=== PATIENT | female | born 1935 | race Caucasian/White ===

== ENCOUNTER 2018-01-24 11:30 | Inpatient (IN) | payer MEDICAID, MEDICARE ==
[2018-01-24] MEDS ORDERED: ZOFRAN IV ONE (12:17)
[2018-01-24] MEDS ORDERED: MORPHINE IV ONE (12:18)
[2018-01-24] MEDS ORDERED: ANTIVERT PO ONE (12:20)
--- NOTE | 2018-01-24 12:26 | Emergency Department Report ---
HPI - General Chief Complaint: Fall Time Seen by Provider: 01/24/18 12:05 - HPI HPI: Room 4 The patient is an 82-year-old female presenting with a chief complaint of dizziness and fall. The patient states at approximately 10:30 she felt dizzy and fell to the ground. The patient states she did not lose consciousness. After the fall the patient complained of pain in both shoulders her right hand and left knee and the right side of her neck. Patient denies chest pain or shortness of breath. Patient gives her pain a score of 10/10 Location: [See above] Duration: [See above] Quality: Pain Severity: 10/10 Modifying factors: [see above] Context: [see above] Mode of transportation: [not driving] ED Past Medical Hx - Past Medical History Previous Medical History?: Yes Hx Hypertension: Yes Hx Asthma: Yes Additional medical history: abd pain, headache - Surgical History Past Surgical History?: Yes Additional Surgical History: rectal polyps - Family History Family history: no significant - Social History Smoking Status: Never Smoker Substance Use Type: None - Medications Home Medications: Home Medications Medication Instructions Recorded Confirmed Last Taken Type Aspirin EC [Aspirin Enteric Coated 81 mg PO QDAY 02/01/17 01/24/18 Unknown History TAB] Omeprazole Magnesium [PriLOSEC Otc] 20 mg PO QDAY 02/01/17 01/24/18 Unknown History Albuterol Sulfate [Ventolin Hfa] 2 puff IH Q4H PRN 01/24/18 01/24/18 Unknown History Alendronate Sodium [Fosamax] 70 mg PO QWEEK 01/24/18 01/24/18 Unknown History Bisacodyl [Dulcolax] 5 mg PO DAILY PRN 01/24/18 01/24/18 Unknown History Diclofenac Sodium [Voltaren] 2 gm TP QID 01/24/18 01/24/18 Unknown History Pentoxifylline [TRENtal] 400 mg PO QDAY 01/24/18 01/24/18 Unknown History Simvastatin [Zocor] 20 mg PO QPM 01/24/18 01/24/18 Unknown History ED Review of Systems ROS: Stated complaint: FALL Other details as noted in HPI Constitutional: no symptoms reported Eyes: denies: eye pain ENT: denies: throat pain Respiratory: denies: shortness of breath Cardiovascular: denies: chest pain Gastrointestinal: denies: abdominal pain Genitourinary: denies: dysuria Musculoskeletal: arthralgia, myalgia. denies: back pain Neurological: vertigo. denies: headache Physical Exam - Physical Exam Vital Signs: Vital Signs 01/24/18 11:57 Temperature 97.9 F Pulse Rate 65 Respiratory 18 Rate Blood Pressure 213/71 O2 Sat by Pulse 96 Oximetry Physical Exam: GENERAL: The patient is well-developed well-nourished female lying on stretcher not appearing to be in acute distress. Collar in place HEENT: Normocephalic. Atraumatic. Extraocular motions are intact. Patient has moist mucous membranes. NECK: Supple. Trachea midline. Patient plans pain in the right lateral aspect CHEST/LUNGS: Clear to auscultation. There is no respiratory distress noted. HEART/CARDIOVASCULAR: Regular. There is no tachycardia. There is no gallop rub or murmur. ABDOMEN: Abdomen is soft, nontender. Patient has normal bowel sounds. There is no abdominal distention. SKIN: There is no rash. There is no edema. There is no diaphoresis. NEURO: The patient is awake, alert, and oriented. The patient is cooperative. The patient has no focal neurologic deficits. The patient has normal speech. Cranial nerves II through XII grossly intact, no drift MUSCULOSKELETAL: There is tenderness to palpation of the dorsum of the right hand, right forearm and bilateral shoulders and left knee. There are no deformities seen.. There is no evidence of acute injury. ED Course Vital Signs 01/24/18 11:57 Temperature 97.9 F Pulse Rate 65 Respiratory 18 Rate Blood Pressure 213/71 O2 Sat by Pulse 96 Oximetry - Orthopedic Joint Reduction Joint #1 Consent Obtained: verbal consent, written consent Side: right Joint Reduction Location: shoulder Analgesia: moderate sedation Shoulder Technique Used (if applicable): traction/counter-traction, other ( modified Gene) Technique Used: traction/counter-traction Post-Reduction Neuro Exam: intact Post-Reduction Vascular Exam: intact Post Reduction X-Ray Obtained: Yes Post Reduction X-Ray Results: reduced Splint Applied: Yes Patient Tolerated Procedure: well ED Medical Decision Making - Lab Data Result diagrams: 01/24/18 13:59 01/24/18 13:59 - EKG Data -: EKG Interpreted by Ct EKG shows normal: sinus rhythm Rate: normal - EKG Data When compared to previous EKG there are: no significant change Interpretation: unchanged when compared t (02/01/2017) - Radiology Data Radiology results: pending (CT angiogram chest (Dr. Rodriguez made aware of pending CT angiogram)), report reviewed (CT head, CT cervical spine), image reviewed ( CT head, CT cervical spine) interpreted by me: Bilateral shoulder [id number] shoulder dislocation. Left Shoulder anatomic. No evidence of fracture Right hand x-ray-no acute fracture Left knee x-ray- no acute fracture Right forearm x-ray- questionable radial head fracture [facility] [address] [id number] Cat Scan Report Signed Patient: ROJELIO GARCÍA MR#: [id number] : 1935 Acct:[id number] Age/Sex: 82 / F ADM Date: 01/24/18 Loc: ED Attending Dr: Ordering Physician: YOSEF GRIMALDO MD Date of Service: 01/24/18 Procedure(s): CT head/brain wo con Accession Number(s): [id number] cc: YOSEF GRIMALDO MD CT HEAD WITHOUT CONTRAST INDICATION: Dizziness. COMPARISON: 02/01/[address] FINDINGS: Noncontrast head CT again demonstrates symmetric, age-appropriate ventricles and sulci. Slight periventricular hypodensities. Minimal, benign bilateral basal ganglia calcifications. No definite acute infarct, hemorrhage, mass effect or midline shift. No abnormal extra axial fluid collections. Stable posterior fossa with preserved basilar cisterns and appearance of the vertebral arteries, including calcifications. Bilateral ICA atherosclerotic calcifications also noted. Bilateral cataract surgery. Slight rightward nasal septal bowing. Clear anterior paranasal sinuses and right mastoid air cells. Left mastoid tip air cell opacification noted as on axial image 8. Intact calvarium. Normal scalp. Edentulous jaw. CONCLUSION: No acute intracranial CT abnormality with slight left mastoiditis and few other incidental findings, as above. Thank you for the opportunity to participate in this patient's care. Transcribed By: RS Dictated By: OBIE AMADOR MD Electronically Authenticated By: OBIE AMADOR MD Signed Date/Time: 01/24/18 1405 DD/ 1359 TD/TT: 01/24/[address] cervical spine (read by radiologist)-no acute fracture - Differential Diagnosis vertigo, ICH, dysrhythmia, cervical strain, cervical fracture, Critical care attestation.: If time is entered above; I have spent that time in minutes in the direct care of this critically ill patient, excluding procedure time. ED Disposition Clinical Impression: Dislocation of right shoulder joint, Near syncope, Fracture of radial head, right, closed Disposition: 09 OP ADMIT IP TO THIS HOSP Is pt being admited?: Yes Does the pt Need Aspirin: Yes Condition: Stable Referrals: PRIMARY CARE,MD [Primary Care Provider] - 3-5 Days Time of Disposition: 16:21 (hospitalist notified (Dr Rodriguez))
--- NOTE | 2018-01-24 14:06 | XRay Report ---
RIGHT FOREARM RADIOGRAPHS INDICATION: Pain, fall. COMPARISON: None similar. FINDINGS: Attempted AP and lateral views demonstrate intact right forearm bony articulation. Questionable subtle radial head lucency. Mild soft tissue heterogeneity/swelling about the elbow also not excluded. Lateral epicondyle degenerative spurring seen. Bony demineralization and osteoarthritic changes as at the first carpometacarpal joint incidentally noted. CONCLUSION: Right elbow post traumatic changes as swelling and questionable nondisplaced radial head fracture not entirely excluded, as described. Please correlate clinically and with dedicated right elbow radiographs, if warranted. Thank you for the opportunity to participate in this patient's care.
[2018-01-24 14:12] LABS: Basophils % (Auto) 0.4 % (0.0-1.8); Eosinophils # (Auto) 0.1 K/mm3 (0.0-0.4); Eosinophils % (Auto) 0.8 % (0.0-4.3); Hematocrit 38.2 % (30.3-42.9); Hemoglobin 12.6 gm/dl (10.1-14.3); Lymphocytes # (Auto) 2.7 K/mm3 (1.2-5.4); Lymphocytes % (Auto) 32.5 % (13.4-35.0); Mean Corpuscular HGB Conc 33 % (30-34); Mean Corpuscular Hemoglobin 31 pg (28-32); Mean Corpuscular Volume 94 fl (79-97); Monocytes # (Auto) 0.7 K/mm3 (0.0-0.8); Monocytes % (Auto) 8.6 % (0.0-7.3); Platelet Count 154 K/mm3 (140-440); Red Blood Count 4.04 M/mm3 (3.65-5.03)
--- NOTE | 2018-01-24 14:12 | Cat Scan Report ---
CT HEAD WITHOUT CONTRAST INDICATION: Dizziness. COMPARISON: 02/01/[address] FINDINGS: Noncontrast head CT again demonstrates symmetric, age-appropriate ventricles and sulci. Slight periventricular hypodensities. Minimal, benign bilateral basal ganglia calcifications. No definite acute infarct, hemorrhage, mass effect or midline shift. No abnormal extra axial fluid collections. Stable posterior fossa with preserved basilar cisterns and appearance of the vertebral arteries, including calcifications. Bilateral ICA atherosclerotic calcifications also noted. Bilateral cataract surgery. Slight rightward nasal septal bowing. Clear anterior paranasal sinuses and right mastoid air cells. Left mastoid tip air cell opacification noted as on axial image 8. Intact calvarium. Normal scalp. Edentulous jaw. CONCLUSION: No acute intracranial CT abnormality with slight left mastoiditis and few other incidental findings, as above. Thank you for the opportunity to participate in this patient's care.
--- NOTE | 2018-01-24 14:25 | Cat Scan Report ---
CT CERVICAL SPINE WITHOUT CONTRAST INDICATION: Pain after fall. COMPARISON: None similar. FINDINGS: Noncontrast axial, sagittal and coronal CT reconstructions of the cervical spine demonstrate normal visualized intracranial appearance. Assessment of the spinal canal from C4 inferiorly compromised due to artifact from shoulder soft tissues. Atherosclerotic calcifications. Mild opacification of a left mastoid tip air cell, axial image 24, series 3. Symmetric occipital condyles. Normal anterior and posterior arches of C1. Intact craniocervical articulation with normal predental space, prevertebral soft tissues, vertebral body stature and posterior elements. Fairly preserved disc heights except for slight C5-C6 narrowing possible. Straightening noted, possibly positional versus spasm. Approximately 1 mm anterolisthesis of C4 over C5 also not excluded. No large disc protrusion at any level suspected. Demineralized bones. Normal included thyroid. Clear visualized lung apices. On the obtained axial images: C2-C3 demonstrates mild to moderate bilateral facet arthropathy. Mild right uncovertebral spurring may result in right neural foraminal narrowing, axial image 58, series 3. C3-C4 demonstrates mild right and moderate to severe left facet arthropathy that in combination with left uncovertebral spurring results in left foraminal narrowing as on axial images 66-69. C4-C5 demonstrates moderate right and mild left facet arthropathy. C5-C6 demonstrates mild right and moderate left facet arthropathy. C6-C7 suggests mild facet arthropathy, left more than right. C7-T1 demonstrates mild bilateral facet arthropathy. An approximately 0.8 cm bone island in left pedicle of C7 incidentally seen, axial image 106. CONCLUSION: Cervical spine straightening and multilevel degenerative changes noted without acute fracture, as above. Please correlate. Thank you for the opportunity to participate in this patient's care.
--- NOTE | 2018-01-24 14:29 | XRay Report ---
LEFT KNEE RADIOGRAPHS INDICATION: Pain after fall. COMPARISON: None similar. FINDINGS: AP, oblique and crosstable lateral views of the left knee suggest at least moderate medial compartment narrowing, though overall articulation intact. Degenerative spurring also predominantly involves the medial compartment as also superior and inferior patellar poles. Superior patellar enthesophyte also noted. Small suprapatellar effusion. Atherosclerotic vascular calcifications. Bony demineralization. CONCLUSION: No acute left knee radiographic abnormality with moderate osteoarthritic changes and a suprapatellar effusion noted, as described. Please correlate. Thank you for the opportunity to participate in this patient's care.
--- NOTE | 2018-01-24 14:32 | XRay Report ---
RIGHT HAND RADIOGRAPHS INDICATION: Pain after fall. COMPARISON: None similar. FINDINGS: AP, lateral and oblique right hand radiographs demonstrate bony demineralization with intact articulation. No suspicious erosions, though degenerative changes most pronounced at the first carpometacarpal joint with sclerosis and spurring. Grossly unremarkable soft tissues. CONCLUSION: No acute right hand radiographic abnormality with degenerative changes noted, as described. Please correlate. Thank you for the opportunity to participate in this patient's care.
[2018-01-24 14:34] LABS: BUN/Creatinine Ratio 33; Blood Urea Nitrogen 23 mg/dL (7-17); Calcium 9.1 mg/dL (8.4-10.2); Hemolysis Index 43
--- NOTE | 2018-01-24 14:39 | XRay Report ---
BILATERAL SHOULDERS, 3 VIEWS History: Pain after fall. Findings: An anterior, inferior dislocation is identified at the left glenohumeral joint. There is normal articulation at the right shoulder. Mild osteopenia and mild osteoarthritis are noted. Impression: Anterior, inferior dislocation at the left shoulder.
[2018-01-24] MEDS ORDERED: ASPIRIN PO ONE (15:05)
[2018-01-24] MEDS ORDERED: AMIDATE IV ONE ×3 (15:08→15:10)
--- NOTE | 2018-01-24 16:02 | XRay Report ---
FINAL REPORT PROCEDURE: XR SHOULDER 1V RT TECHNIQUE: Right shoulder radiograph, single frontal view. HISTORY: post reduction COMPARISON: No prior studies are available for comparison. FINDINGS: Mild osteoarthritic change seen at the AC joint. There appears to be cystic degenerative change superior lateral aspect humeral head. Humeral head is high-riding. I cannot exclude injury to the rotator cuff, chronic or acute. No fracture or dislocation is seen today. Moderate facet arthritis incidentally noted in the cervical spine. IMPRESSION: No evidence of fracture or dislocation. Degenerative changes AC joint. Nonspecific cystic degenerative change superior lateral aspect humeral head. High-riding humeral head as described. I cannot exclude injury to the rotator cuff.
--- NOTE | 2018-01-24 18:09 | Cat Scan Report ---
FINAL REPORT PROCEDURE: CT ANGIO CHEST TECHNIQUE: Computerized tomographic angiography of the chest was performed during the IV injection of iodinated nonionic contrast including image processing. The image data was postprocessed using 2-dimensional multiplanar reformatted (MPR) and 3-dimensional (MIP and/or volume rendered) techniques. HISTORY: dizziness, fall, elevated d-dimer COMPARISON: No prior studies are available for comparison. FINDINGS: Pulmonary outflow tract, right and left main pulmonary arteries and their proximal branches: Clear, no filling defects seen to suggest pulmonary embolus. Pericardium: No evidence of pericardial effusion. Thoracic aorta: Atherosclerotic changes are visualized, no evidence of aneurysmal dilatation or dissection. Coronary arteries: Are partially calcified indicating atherosclerotic disease. Mediastinum and hilar regions: Nonspecific subcentimeter lymph nodes are visualized. No pathologically enlarged lymph nodes or masses are identified. Lung Ortega: Small amount of dependent atelectasis present. No focal infiltrates masses effusions or pneumothorax are visualized. Upper abdomen: Gallbladder is surgically absent. Low-density nodule seen left adrenal gland measuring 15 millimeters x 13 millimeters. This only has a density of 8 Hounsfield units likely representing an adrenal adenoma. Other: Compression deformities of T9, T10, T11, T12 and L1 are visualized. I do not see discrete fracture lines. These findings may be chronic. Correlation with physical exam recommended. No paraspinal hematomas are visualized. IMPRESSION: No evidence of pulmonary embolus. Atherosclerosis coronary arteries. Prior cholecystectomy. Low-density nodule left adrenal gland likely representing small adrenal adenoma. This could be confirmed with MRI or dynamic contrast-enhanced CT scan of the adrenal glands if clinically indicated. Compression deformities T9 through L1 may be old. I do not see discrete fracture lines. Correlation with physical exam is recommended.
[2018-01-25] MEDS ORDERED: MORPHINE IV ONE (00:20)
--- NOTE | 2018-01-25 00:49 | Event Note ---
Date: 01/24/18 See dictated H/p in reports
[2018-01-25] MEDS ORDERED: PROAIR IH PRN (00:54)
[2018-01-25] MEDS ORDERED: SODIUM CHLORIDE FLUSH SYRINGE 10 ML IV PRN (00:56)
[2018-01-25] MEDS ORDERED: ZOFRAN IV PRN (00:56)
[2018-01-25] MEDS ORDERED: PERCOCET 5/325 PO PRN (00:56)
[2018-01-25] MEDS ORDERED: TYLENOL PO PRN (00:56)
[2018-01-25] MEDS ORDERED: PROVENTIL IH PRN (01:03)
--- NOTE | 2018-01-25 01:43 | History and Physical Report ---
CHIEF COMPLAINT: Near syncope and fall. HISTORY OF PRESENT ILLNESS: An 82-year-old female comes in for dizziness and fall. The patient felt dizzy around 10:30 and fell to the ground. Did not lose consciousness. Pain in both the shoulders and especially right shoulder. The patient denies any chest pain or shortness of breath. Right shoulder pain is about 10 on a scale of 1-10. No fever, no chills. PAST MEDICAL HISTORY: Significant for hypertension, asthma, and headaches. PAST SURGICAL HISTORY: Rectal polyps. FAMILY HISTORY: No significant family history. SOCIAL HISTORY: Does not smoke. No alcohol. No recreational drugs. CURRENT MEDICATIONS: Simvastatin 20 mg once a day, pentoxifylline for peripheral artery disease 400 mg once a day, diclofenac ointment 4 times a day, Fosamax 70 mg once weekly, omeprazole 20 mg once a day, aspirin 81 mg once a day. REVIEW OF SYSTEMS: Significant for feeling dizzy and fall with no loss of consciousness, no chest pain. Otherwise, review of systems is negative. PHYSICAL EXAMINATION: GENERAL: Elderly female, cooperative with examination. VITAL SIGNS: Temperature 97.9, pulse 65, respirations 18, blood pressure is 213/71. HEENT: Unremarkable. Pupils equal and reactive. NECK: Supple, no lymphadenopathy, no thyromegaly. LUNGS: Clear to auscultation and percussion. Good air entry. CARDIOVASCULAR: S1, S2 heard. No gallop, no murmur, no rub. Apical impulse in left fifth intercostal space and midclavicular line. ABDOMEN: Soft and benign. No hepatosplenomegaly. No guarding, no rigidity. Hernial orifices are normal. EXTREMITIES: Good pedal pulses. Right shoulder dislocated. Decreased range of motion. CENTRAL NERVOUS SYSTEM: Alert and oriented x 4, nonfocal exam. SKIN: Normal. LABORATORY DATA: White count is 8400, H and H is 12.6 and 38.2, platelet count is 154,000. D-dimer is 1528. Electrolytes are normal. Glucose is slightly high 114. REPORTS, IMAGING STUDIES AND EKG: EKG normal sinus rhythm, no acute changes. CT angiogram of the chest ____ no evidence of pulmonary embolism. Prior cholecystectomy. Compression deformities at the T9-L1 which may be old.R Shoulder dislocation ASSESSMENT AND PLAN: 1. Syncope. Syncope workup. The patient to get Lexiscan, carotid duplex scan and echocardiogram. 2. Asthma. Continue albuterol on a p.r.n. basis. 3. Osteoporosis. Continue Fosamax. We will keep it on hold for the next 2 days. The patient may resume after discharge. 4. Osteoarthritis. Continue diclofenac ointment. 5. Peripheral artery disease. Continue Trental. 6. Hyperlipidemia. Continue Zocor 20 mg p.o. daily or equivalent. 7.R Shoulder Dislocation--Replaced in ED by ED physician under sedation. 8. Deep venous thrombosis prophylaxis. Lovenox 40 subcutaneous daily. JOB# [id number] VSCeferino/CATHY HEREDIA
[2018-01-25 02:23] LABS: Bilirubin,Urine NEG (Negative); Blood,Urine NEG (Negative); Color,Urine Yellow (Yellow); Mucus,Urine FEW /HPF; Protein,Urine <15 mg/dL mg/dL (Negative); WBC,Urine < 1.0 /HPF (0.0-6.0)
[2018-01-25 08:38] LABS: Creatine Kinase MB 1.7 ng/mL (0.0-4.0)
[2018-01-25] MEDS ORDERED: NON-FORMULARY (Omeprazole Magnesium [Prilosec Otc] 20 MG) PO SCH (10:00)
[2018-01-25] MEDS: HALFPRIN EC PO SCH (10:23)
[2018-01-25] MEDS: PROTONIX PO SCH (10:23)
[2018-01-25] MEDS: SODIUM CHLORIDE FLUSH SYRINGE 10 ML IV SCH ×2 (10:24→21:29)
[2018-01-25] MEDS: TRENTAL PO SCH (10:39)
[2018-01-25] MEDS: MOTRIN PO PRN (10:44)
[2018-01-25] MEDS ORDERED: NON-FORMULARY (Simvastatin [Zocor] 20 MG) PO SCH (18:00)
--- NOTE | 2018-01-25 18:11 | Progress Note ---
Assessment and Plan Assessment and plan: --Near-syncope/ s/p fall, Multiple trauma Fall precautions, physical therapy occupational therapy, rehabilitation Workup; Carotid Doppler; less than 50% CT cervical spine w/o ; cervical spine straightening and multilevel degenerative changes no acute fractures CTA chest; no evidence of PE, atherosclerotic coronary arteries, prior cholecystectomy Low-density nodules left adrenal glands, small adrenal adenoma Compressive deformities T9 -L1, old, no fractures X-ray knee; no acute abnormality,mod osteoarthritis, suprapatellar effusion Bilateral shoulder; anterior inferior dislocation of the right shoulder[per addendum note on the report] Mild osteopenia, right shoulder normal articulation --Right hand x-ray; no acute right-hand abnormality degenerative changes --Right shoulder; no evidence of fracture Degenerative changes of before meals joint, high riding humeral head and cannot exclude injury to the rotator cuff --Anterior dislocation of right shoulder[as per addendum of the report bilateral shoulder] Continue sliding, supportive care, pain management, orthopedic consult ----Hypertension; moderate control, continue current antihypertensives When necessary medications --Osteoporosis/osteoarthritis; continue supportive care --Dyslipidemia; on lipid lowering medication --History of peripheral vascular disease; continue current management --History of bronchial asthma; well compensated. oxygen titrated O2 sats more than 90%, albuterol as needed --DVT prophylaxis; Lovenox/SCD --Full CODE STATUS --Physical therapy, occupational therapy, possible home with home health at discharge Disposition; follow-up after evaluation and recommendations Recommend DC home in 1-2 days if stable Patient is stable to be transferred out of telemetry Plan of care reviewed with the patient and multiple family members at the bedside Also with the nurse and case management History Interval history: 82-year-old female patient was admitted through emergency room with history of fall/syncope Multiple x-rays were taken, bilateral shoulder x-rays consistent with right anterior shoulder dislocation/corrected in the ER Shoulder and the sling. Fall precautions, PT OT requested Patient feels better mild pain in the right shoulder Alert and awake and responding appropriately Vital signs reviewed Multiple family members at the bedside Hospitalist Physical - Constitutional Vitals: Temp Pulse Resp BP Pulse Ox 99.1 F 58 L 20 117/58 94 01/25/18 16:00 01/25/18 16:00 01/25/18 16:00 01/25/18 16:01/25/18 12:40 General appearance: Present: no acute distress, well-nourished - EENT Eyes: Present: PERRL, EOM intact - Neck Neck: Present: supple, normal ROM - Respiratory Respiratory effort: normal Respiratory: bilateral: diminished, negative: rales, rhonchi, wheezing - Cardiovascular Rhythm: regular Heart Sounds: Present: S1 & S2 - Extremities Extremities: no ischemia, abnormal (right shoulder dislocation/corrected/in sling) - Abdominal General gastrointestinal: soft, non-tender, non-distended, normal bowel sounds - Integumentary Integumentary: Present: clear, warm - Psychiatric Psychiatric: cooperative, other (confused) - Neurologic Neurologic: moves all extremities Results - Labs CBC & Chem 7: 01/24/18 13:59 01/24/18 13:59 Labs: Laboratory Last Values WBC 8.4 K/mm3 (4.5-11.0) 01/24/18 13:59 RBC 4.04 M/mm3 (3.65-5.03) 01/24/18 13:59 Hgb 12.6 gm/dl (10.1-14.3) 01/24/18 13:59 Hct 38.2 % (30.3-42.9) 01/24/18 13:59 MCV 94 fl (79-97) 01/24/18 13:59 MCH 31 pg (28-32) 01/24/18 13:59 MCHC 33 % (30-34) 01/24/18 13:59 RDW 14.0 % (13.2-15.2) 01/24/18 13:59 Plt Count 154 K/mm3 (140-440) 01/24/18 13:59 Lymph % (Auto) 32.5 % (13.4-35.0) 01/24/18 13:59 [place] % (Auto) 8.6 % (0.0-7.3) H 01/24/18 13:59 Eos % (Auto) 0.8 % (0.0-4.3) 01/24/18 13:59 Baso % (Auto) 0.4 % (0.0-1.8) 01/24/18 13:59 Lymph # 2.7 K/mm3 (1.2-5.4) 01/24/18 13:59 [place] # 0.7 K/mm3 (0.0-0.8) 01/24/18 13:59 Eos # 0.1 K/mm3 (0.0-0.4) 01/24/18 13:59 Baso # 0.0 K/mm3 (0.0-0.1) 01/24/18 13:59 Seg Neutrophils % 57.7 % (40.0-70.0) 01/24/18 13:59 Seg Neutrophils # 4.8 K/mm3 (1.8-7.7) 01/24/18 13:59 D-Dimer 1528.02 ng/mlDDU (0-234) H 01/24/18 13:59 Sodium 142 mmol/L (137-145) 01/24/18 13:59 Potassium 4.1 mmol/L (3.6-5.0) 01/24/18 13:59 Chloride 102.0 mmol/L (98-107) 01/24/18 13:59 Carbon Dioxide 27 mmol/L (22-30) 01/24/18 13:59 Anion Gap 17 mmol/L 01/24/18 13:59 BUN 23 mg/dL (7-17) H 01/24/18 13:59 Creatinine 0.7 mg/dL (0.7-1.2) 01/24/18 13:59 Estimated GFR > 60 ml/min 01/24/18 13:59 BUN/Creatinine Ratio 33 % 01/24/18 13:59 Glucose 114 mg/dL (65-100) H 01/24/18 13:59 Hemoglobin A1c 5.5 % (4-6) 01/25/18 01:20 Calcium 9.1 mg/dL (8.4-10.2) 01/24/18 13:59 Total Creatine Kinase 136 units/L (30-135) H 01/25/18 07:40 CK-MB (CK-2) 1.7 ng/mL (0.0-4.0) 01/25/18 07:40 CK-MB (CK-2) Rel Index 1.2 (0-4) 01/25/18 07:40 Troponin T < 0.010 ng/mL (0.00-0.029) 01/25/18 07:40 Urine Color Yellow (Yellow) 01/25/18 01:00 Urine Turbidity Clear (Clear) 01/25/18 01:00 Urine pH 6.0 (5.0-7.0) 01/25/18 01:00 Ur Specific [place] 1.060 (1.003-1.030) H 01/25/18 01:00 Urine Protein <15 mg/dl mg/dL (Negative) 01/25/18 01:00 Urine Glucose (UA) Neg mg/dL (Negative) 01/25/18 01:00 Urine Ketones Neg mg/dL (Negative) 01/25/18 01:00 Urine Blood Neg (Negative) 01/25/18 01:00 Urine Nitrite Neg (Negative) 01/25/18 01:00 Urine Bilirubin Neg (Negative) 01/25/18 01:00 Urine Urobilinogen 2.0 mg/dL (<2.0) 01/25/18 01:00 Ur Leukocyte Esterase Neg (Negative) 01/25/18 01:00 Urine WBC (Auto) < 1.0 /HPF (0.0-6.0) 01/25/18 01:00 Urine RBC (Auto) 2.0 /HPF (0.0-6.0) 01/25/18 01:00 U Epithel Cells (Auto) 4.0 /HPF (0-13.0) 01/25/18 01:00 Urine Mucus Few /HPF 01/25/18 01:00
[2018-01-25] MEDS: MORPHINE IV PRN (21:28)
[2018-01-25] MEDS: PRAVACHOL PO SCH (21:28)
[2018-01-25] MEDS: LOVENOX SUB-Q SCH (21:29)
[2018-01-26 06:34] LABS: Alanine Aminotransferase 42 units/L (7-56); BUN/Creatinine Ratio 30; Blood Urea Nitrogen 18 mg/dL (7-17); Calcium 8.5 mg/dL (8.4-10.2); Hemolysis Index 26
[2018-01-26] MEDS: HALFPRIN EC PO SCH (09:20)
[2018-01-26] MEDS: SODIUM CHLORIDE FLUSH SYRINGE 10 ML IV SCH ×2 (09:21→21:15)
[2018-01-26] MEDS: PROTONIX PO SCH (09:21)
[2018-01-26] MEDS: TRENTAL PO SCH (09:25)
--- NOTE | 2018-01-26 13:36 | Consultation ---
History of Present Illness - [facility] Consult date: 01/26/18 Consult reason: joint pain History of present illness: 82-year-old female presenting with a chief complaint of dizziness and fall. The patient states she felt dizzy and fell to the ground. The patient states she did not lose consciousness. After the fall the patient complained of pain in both shoulders her right hand and left knee and the right side of her neck. She was seen in the emergency room where x-rays were taken revealing an anterior shoulder dislocation patient underwent closed reduction and was admitted for further workup Medications and Allergies Allergies Allergy/AdvReac Type Severity Reaction Status Date / Time acetaminophen Allergy Vomiting Verified 01/24/18 11:57 [From Tylenol-Codeine #3] codeine Allergy Vomiting Verified 01/24/18 11:57 [From Tylenol-Codeine #3] Home Medications Medication Instructions Recorded Confirmed Last Taken Type Aspirin EC [Aspirin Enteric Coated 81 mg PO QDAY 02/01/17 01/24/18 Unknown History TAB] Omeprazole Magnesium [PriLOSEC Otc] 20 mg PO QDAY 02/01/17 01/24/18 Unknown History Albuterol Sulfate [Ventolin Hfa] 2 puff IH Q4H PRN 01/24/18 01/24/18 Unknown History Alendronate Sodium [Fosamax] 70 mg PO QWEEK 01/24/18 01/24/18 Unknown History Bisacodyl [Dulcolax] 5 mg PO DAILY PRN 01/24/18 01/24/18 Unknown History Diclofenac Sodium [Voltaren] 2 gm TP QID 01/24/18 01/24/18 Unknown History Pentoxifylline [TRENtal] 400 mg PO QDAY 01/24/18 01/24/18 Unknown History Simvastatin [Zocor] 20 mg PO QPM 01/24/18 01/24/18 Unknown History Active Meds: Active Medications Acetaminophen (Tylenol) 650 mg PO Q4H PRN PRN Reason: Pain MILD(1-3)/Fever >100.5/DAWSON Albuterol (Proventil) 2.5 mg IH Q4HRT PRN PRN Reason: Shortness Of Breath Aspirin (Halfprin Ec) 81 mg PO QDAY DOM Last Admin: 01/26/18 09:20 Dose: 81 mg Bisacodyl (Dulcolax) 5 mg PO DAILY PRN PRN Reason: Constipation Enoxaparin Sodium (Lovenox) 40 mg SUB-Q QDAY@2200 [facility] Last Admin: 01/25/18 21:29 Dose: 40 mg Ibuprofen (Motrin) 600 mg PO Q6H PRN PRN Reason: Pain, Mild (1-3) Last Admin: 01/25/18 10:44 Dose: 600 mg Morphine Sulfate (Morphine) 2 mg IV Q4H PRN PRN Reason: Pain, Moderate (4-6) Last Admin: 01/25/18 21:28 Dose: 2 mg Ondansetron HCl (Zofran) 4 mg IV Q8H PRN PRN Reason: Nausea And Vomiting Oxycodone/Acetaminophen (Percocet 5/325) 1 tab PO Q6H PRN PRN Reason: Pain, Moderate (4-6) Last Admin: 01/25/18 18:29 Dose: 1 tab Pantoprazole Sodium (Protonix) 20 mg PO QDAY [facility] Last Admin: 01/26/18 09:21 Dose: 20 mg Pentoxifylline (Trental) 400 mg PO QDAY [facility] Last Admin: 01/26/18 09:25 Dose: 400 mg Pravastatin Sodium (Pravachol) 40 mg PO QHS [facility] Last Admin: 01/25/18 21:28 Dose: 40 mg Sodium Chloride (Sodium Chloride Flush Syringe 10 Ml) 10 ml IV BID [facility] Last Admin: 01/26/18 09:21 Dose: 10 ml Sodium Chloride (Sodium Chloride Flush Syringe 10 Ml) 10 ml IV PRN PRN PRN Reason: LINE FLUSH Physical Examination - Physical exam Narrative exam: Right shoulder - patient is in a arm sling there is no obvious deformity she is tender over the anterior portion of the shoulder active range of motion and decreased secondary to pain distal neurovascular status is intact Plain x-rays from the ED were reviewed both pre-and post reduction there does not appear to be any fractures associated with the dislocation Assessment and Plan Assessment right anterior shoulder dislocation Recommendations continue arm sling and begin active range of motion when pain allows
--- NOTE | 2018-01-26 15:22 | Progress Note ---
Assessment and Plan /Anterior dislocation of right shoulder[as per addendum of the report bilateral shoulder] Continue sliding, supportive care, pain management, orthopedic consult pending /Near-syncope/ s/p fall, Multiple trauma Fall precautions, physical therapy occupational therapy, rehabilitation Workup; --Carotid Doppler; less than 50% --CT cervical spine w/o ; cervical spine straightening and multilevel degenerative changes no acute fractures --CTA chest; no evidence of PE, atherosclerotic coronary arteries, prior cholecystectomy Low-density nodules left adrenal glands, small adrenal adenoma Compressive deformities T9 -L1, old, no fractures --X-ray knee; no acute abnormality,mod osteoarthritis, suprapatellar effusion --Bilateral shoulder xry; anterior inferior dislocation of the right shoulder[ per addendum note on the report] Mild osteopenia, right shoulder normal articulation --Right hand x-ray; no acute right-hand abnormality degenerative changes --Right shoulder; no evidence of fracture Degenerative changes of before meals joint, high riding humeral head and cannot exclude injury to the rotator cuff /Hypertension; moderate control, continue current antihypertensives When necessary medications /Osteoporosis/osteoarthritis; continue supportive care /Dyslipidemia; on lipid lowering medication /History of peripheral vascular disease; continue current management /History of bronchial asthma; well compensated. oxygen titrated O2 sats more than 90%, albuterol as needed --DVT prophylaxis; Lovenox/SCD --Full CODE STATUS --Physical therapy, occupational therapy, possible home with home health at discharge Disposition; follow-up after PT and ortho evaluation and recommendations Recommend DC home in 1-2 days if stable Plan of care reviewed with the patient and multiple family members at the bedside Also with the nurse and case management Brief History 82-year-old female patient was admitted through emergency room with history of fall/syncope Multiple x-rays were taken, bilateral shoulder x-rays consistent with right anterior shoulder dislocation/corrected in the ER Shoulder and the sling. Fall precautions, PT OT requested Hospitalist Physical General appearance: Present: no acute distress, well-nourished - EENT Eyes: Present: PERRL, EOM intact - Neck Neck: Present: supple, normal ROM - Respiratory Respiratory effort: normal Respiratory: bilateral: diminished, negative: rales, rhonchi, wheezing - Cardiovascular Rhythm: regular Heart Sounds: Present: S1 & S2 - Extremities Extremities: no ischemia, abnormal (right shoulder dislocation/corrected/in sling) - Abdominal General gastrointestinal: soft, non-tender, non-distended, normal bowel sounds - Integumentary Integumentary: Present: clear, warm - Psychiatric Psychiatric: cooperative, other (confused) - Neurologic Neurologic: moves all extremities Subjective Date of service: 01/26/18 Interval history: Patient feels better mild pain in the right shoulder Alert and awake and responding appropriately Vital signs reviewed Multiple family members at the bedside PT and ortho eval pending Objective - Constitutional Vitals: Vital Signs - 12hr 01/26/18 01/26/18 01/26/18 07:40 10:00 13:42 Temperature 98.6 F 98.9 F Pulse Rate 56 L 64 Respiratory 20 20 20 Rate Blood Pressure 120/51 125/51 O2 Sat by Pulse 94 100 Oximetry - Labs CBC & Chem 7: 01/24/18 13:59 01/26/18 05:37 Labs: Abnormal lab results 01/26/18 Range/Units 05:37 BUN 18 H (7-17) mg/dL Creatinine 0.6 L (0.7-1.2) mg/dL AST 43 H (5-40) units/L Total Protein 5.6 L (6.3-8.2) g/dL Albumin 3.0 L (3.9-5) g/dL
[2018-01-26] MEDS: DULCOLAX PO PRN (16:34)
[2018-01-26] MEDS: MOTRIN PO PRN (16:34)
[2018-01-26] MEDS: PRAVACHOL PO SCH (21:14)
[2018-01-26] MEDS: LOVENOX SUB-Q SCH (21:14)
[2018-01-26] MEDS: MORPHINE IV PRN (21:15)
[2018-01-27] MEDS: PROTONIX PO SCH (10:02)
[2018-01-27] MEDS: TRENTAL PO SCH (10:02)
[2018-01-27] MEDS: HALFPRIN EC PO SCH (10:02)
[2018-01-27] MEDS: SODIUM CHLORIDE FLUSH SYRINGE 10 ML IV SCH (10:03)
[2018-01-27] MEDS: DULCOLAX PO PRN (10:05)
[2018-01-27] MEDS: MOTRIN PO PRN (10:47)
--- NOTE | 2018-01-27 14:02 | Discharge Summary ---
Providers - Providers Date of Admission: 01/24/18 16:18 Date of discharge: 01/27/18 Attending physician: BOB CASTILLO 01/26/18 08:00 Consult to Physician [CONS] Routine Comment: called answ. service/beau Consulting Provider: KEL COOK Physician Instructions: Reason For Exam: s/p Fall Rt shoulder dislocation 01/26/18 10:54 Physical Therapy Evaluation and Treat [CONS] Urgent Comment: Reason For Exam: debility, weakness, frequent falls 01/26/18 10:55 Occupational Therapy Evaluate and Treat [CONS] Urgent Comment: Reason For Exam: dislocated shoulder, debility, weakness. Primary care physician: SECURITY AUDITOR Hospitalization Condition: Stable Hospital course: Brief History 82-year-old female patient was admitted through emergency room with history of fall/syncope Multiple x-rays were taken, bilateral shoulder x-rays consistent with right anterior shoulder dislocation/corrected in the ER Shoulder and the sling. Fall precautions, PT OT requested Discharge diagnosis and management: /Anterior dislocation of right shoulder[as per addendum of the report bilateral shoulder] Continue sliding, supportive care, pain management, orthopedic consult pending /Near-syncope/ s/p fall, Multiple trauma Fall precautions, physical therapy occupational therapy, rehabilitation Workup; --Carotid Doppler; less than 50% --CT cervical spine w/o ; cervical spine straightening and multilevel degenerative changes no acute fractures --CTA chest; no evidence of PE, atherosclerotic coronary arteries, prior cholecystectomy Low-density nodules left adrenal glands, small adrenal adenoma Compressive deformities T9 -L1, old, no fractures --X-ray knee; no acute abnormality,mod osteoarthritis, suprapatellar effusion --Bilateral shoulder xry; anterior inferior dislocation of the right shoulder[ per addendum note on the report] Mild osteopenia, right shoulder normal articulation --Right hand x-ray; no acute right-hand abnormality degenerative changes --Right shoulder; no evidence of fracture Degenerative changes of before meals joint, high riding humeral head and cannot exclude injury to the rotator cuff /Hypertension; moderate control, continue current antihypertensives When necessary medications /Osteoporosis/osteoarthritis; continue supportive care /Dyslipidemia; on lipid lowering medication /History of peripheral vascular disease; continue current management /History of bronchial asthma; well compensated. oxygen titrated O2 sats more than 90%, albuterol as needed --DVT prophylaxis; Lovenox/SCD --Full CODE STATUS --Physical therapy, occupational therapy, possible home with home health at discharge Disposition; Home with Hospitalist Physical General appearance: Present: no acute distress, well-nourished - EENT Eyes: Present: PERRL, EOM intact - Neck Neck: Present: supple, normal ROM - Respiratory Respiratory effort: normal Respiratory: bilateral: diminished, negative: rales, rhonchi, wheezing - Cardiovascular Rhythm: regular Heart Sounds: Present: S1 & S2 - Extremities Extremities: no ischemia, abnormal (right shoulder dislocation/corrected/in sling) - Abdominal General gastrointestinal: soft, non-tender, non-distended, normal bowel sounds - Integumentary Integumentary: Present: clear, warm - Psychiatric Psychiatric: cooperative, other (confused) - Neurologic Neurologic: moves all extremities Disposition: DC/TX-06 HOME UNDER HOME HL Time spent for discharge: 34 minutes Exam - Constitutional Vitals: Temp Pulse Resp BP Pulse Ox 97.7 F 59 L 20 131/58 93 01/27/18 09:07 01/27/18 09:07 01/27/18 09:07 01/27/18 09:07 01/27/18 10:00 Plan Activity: advance as tolerated Weight Bearing Status: Non-Weight Bearing Diet: low fat, low salt Additional Instructions: f/u with dr. Cook in 2-3 weeks Follow up with: PRIMARY CAREMD [Primary Care Provider] - 3-5 Days
[2018-01-27 14:23] VITALS: BP 114/61
== END 2018-01-27 17:30 | disposition home health service (06) | DRG 563 ==
LOC: ED 11:30 → 4A 16:18 → 2B-ACE 01-26 00:53
PROVIDERS: ADMIT Internal Medicine; ATTEND Internal Medicine
PROC: 0RSJXZZ Reposition Right Shoulder Joint, External Approach (ICD-10-PCS; principal; 2018-01-26)
DX: S43.084A Other dislocation of right shoulder joint, initial encounter (principal); J45.909 Unspecified asthma, uncomplicated; R55 Syncope and collapse; I10 Essential (primary) hypertension; M81.0 Age-related osteoporosis without current pathological fracture; M19.90 Unspecified osteoarthritis, unspecified site; E78.5 Hyperlipidemia, unspecified; I73.9 Peripheral vascular disease, unspecified; W18.39XA Other fall on same level, initial encounter; Z88.5 Allergy status to narcotic agent; Z79.82 Long term (current) use of aspirin; Z79.899 Other long term (current) drug therapy; Y93.89 Activity, other specified; Y92.89 Other specified places as the place of occurrence of the external cause; Y99.8 Other external cause status
CPT/HCPCS: 36415; 70450; 71275; 72125; 80048; 80053; 81001; 82550; 82553; 83036; 84484; 85025; 85379; 93005; 93010; 93880; 96374; 96375; A9270-GY; G8978-GP; G8979-GP; J1650; J2270; J2405; Q9967

== ENCOUNTER 2019-01-28 12:44 | Emergency (ER) | payer MEDICARE ==
--- NOTE | 2019-01-28 13:14 | Event Note ---
ED Screening Note Date of service: 01/28/19 Time: 13:13 ED Screening Note: 83 y/o female c/o bilateral knee pain and swelling This initial assessment/diagnostic orders/clinical plan/treatment(s) is/are subject to change based on patients health status, clinical progression and re- assessment by fellow clinical providers in the ED. Further treatment and workup at subsequent clinical providers discretion. Patient/guardian urged not to elope from the ED as their condition may be serious if not clinically assessed and managed. Initial orders include:
[2019-01-28 13:30] VITALS: BP 146/53
--- NOTE | 2019-01-28 13:50 | Emergency Department Report ---
ED Extremity Problem HPI - General Chief complaint: Extremity Injury, Lower Stated complaint: KNEES SWOLLEN Time Seen by Provider: 01/28/19 13:45 Source: family Mode of arrival: Wheelchair Limitations: Language Barrier - History of Present Illness Initial comments: Patient is a 83-year-old [place] female who is presenting with bilateral knee pain. Patient has a history of arthritis and has had progressively worse swelling to the bilateral knees, left greater than right for the last week. Patient have difficulty walking secondary to pain. Patient is noted swelling to the left knee. The patient was tried to get in touch with the orthopedic office was been unable to schedule an appointment. Vision denies any direct trauma falls. - Related Data Home Medications Medication Instructions Recorded Confirmed Last Taken Aspirin EC 81 mg PO QDAY 02/01/17 01/24/18 Unknown Omeprazole Magnesium [PriLOSEC Otc] 20 mg PO QDAY 02/01/17 01/24/18 Unknown Albuterol Sulfate [Ventolin Hfa] 2 puff IH Q4H PRN 01/24/18 01/24/18 Unknown Alendronate Sodium [Fosamax] 70 mg PO QWEEK 01/24/18 01/24/18 Unknown Bisacodyl [Dulcolax tab] 5 mg PO DAILY PRN 01/24/18 01/24/18 Unknown Diclofenac Sodium [Voltaren] 2 gm TP QID 01/24/18 01/24/18 Unknown Pentoxifylline [TRENtal] 400 mg PO QDAY 01/24/18 01/24/18 Unknown Simvastatin [Zocor] 20 mg PO QPM 01/24/18 01/24/18 Unknown Previous Rx's Medication Instructions Recorded Last Taken Type Ibuprofen [Motrin 600 MG tab] 600 mg PO Q6H PRN tablet 01/27/18 Unknown Rx Famotidine [Pepcid] 20 mg PO BID #20 tablet 01/28/19 Unknown Rx traMADol [Ultram] 50 mg PO Q6HR PRN #12 tablet 01/28/19 Unknown Rx Allergies Allergy/AdvReac Type Severity Reaction Status Date / Time acetaminophen Allergy Vomiting Verified 01/28/19 12:44 [From Tylenol-Codeine #3] codeine Allergy Vomiting Verified 01/28/19 12:44 [From Tylenol-Codeine #3] ED Review of Systems ROS: Stated complaint: KNEES SWOLLEN Other details as noted in HPI Comment: All other systems reviewed and negative ED Past Medical Hx - Past Medical History Hx Hypertension: Yes Hx Arthritis: Yes Hx Asthma: Yes Additional medical history: abd pain, headache - Surgical History Additional Surgical History: rectal polyps - Social History Smoking Status: Never Smoker Substance Use Type: None - Medications Home Medications: Home Medications Medication Instructions Recorded Confirmed Last Taken Type Aspirin EC 81 mg PO QDAY 02/01/17 01/24/18 Unknown History Omeprazole Magnesium [PriLOSEC Otc] 20 mg PO QDAY 02/01/17 01/24/18 Unknown History Albuterol Sulfate [Ventolin Hfa] 2 puff IH Q4H PRN 01/24/18 01/24/18 Unknown History Alendronate Sodium [Fosamax] 70 mg PO QWEEK 01/24/18 01/24/18 Unknown History Bisacodyl [Dulcolax tab] 5 mg PO DAILY PRN 01/24/18 01/24/18 Unknown History Diclofenac Sodium [Voltaren] 2 gm TP QID 01/24/18 01/24/18 Unknown History Pentoxifylline [TRENtal] 400 mg PO QDAY 01/24/18 01/24/18 Unknown History Simvastatin [Zocor] 20 mg PO QPM 01/24/18 01/24/18 Unknown History Ibuprofen [Motrin 600 MG tab] 600 mg PO Q6H PRN tablet 01/27/18 Unknown Rx Famotidine [Pepcid] 20 mg PO BID #20 tablet 01/28/19 Unknown Rx traMADol [Ultram] 50 mg PO Q6HR PRN #12 tablet 01/28/19 Unknown Rx ED Physical Exam - General Limitations: Language Barrier General appearance: alert, in no apparent distress - Head Head exam: Present: atraumatic, normocephalic - Eye Eye exam: Present: normal appearance, PERRL, EOMI - ENT ENT exam: Present: mucous membranes moist - Neck Neck exam: Present: normal inspection - Respiratory Respiratory exam: Present: normal lung sounds bilaterally. Absent: respiratory distress, wheezes, rales - Cardiovascular Cardiovascular Exam: Present: regular rate, normal rhythm. Absent: systolic murmur, diastolic murmur, rubs, gallop - GI/Abdominal GI/Abdominal exam: Present: soft, tenderness (epigastric), normal bowel sounds. Absent: distended, guarding, rebound - Extremities Exam Extremities exam: Present: normal inspection, joint swelling (bilateral knees shows some swelling. The right knee swelling is mild the left knee swelling does show a moderate effusion. There is no overlying erythema or warmth. She has full range of motion however it is painful.) - Back Exam Back exam: Present: normal inspection - Neurological Exam Neurological exam: Present: alert, oriented X3 - Psychiatric Psychiatric exam: Present: normal affect, normal mood - Skin Skin exam: Present: warm, dry, intact, normal color. Absent: rash ED Course Vital Signs 01/28/19 13:05 Temperature 98 F Pulse Rate 59 L Respiratory 20 Rate Blood Pressure 146/53 O2 Sat by Pulse 99 Oximetry - Bursa Procedures Consent Obtained: verbal consent Time Out Performed: Yes Indications: aspiration/injection Side of Body: left Site of Procedure: other (knee) XRAY Obtained: none Antisepsis Used: Povidone-Iodine1% Local Anesthetic Used: Lidocaine 1% [place] of Anesthesia Used (mls): 3 Fluid Obtained (mls): 5 Fluid Type: clear Medication Injected: other (decadron/lidocaine 1:1 ) Amount of Medication Used (#mg's): 10 Lidocaine Added to Medication: Yes Patient Tolerated Procedure: well Complications: none ED Medical Decision Making - Medical Decision Making Patient has her effusion drained here in emergency department and patient was placed in Tonny wrap. Patient is able to move the left knee with greater ease after the aspiration. The patient's granddaughter also requesting some type of medication for her GERD. Patient be discharged home. Critical care attestation.: If time is entered above; I have spent that time in minutes in the direct care of this critically ill patient, excluding procedure time. ED Disposition Clinical Impression: Knee effusion, left, Knee arthropathy GERD (gastroesophageal reflux disease) Qualifiers: Esophagitis presence: esophagitis presence not specified Qualified Code(s): K21.9 - Gastro-esophageal reflux disease without esophagitis Disposition: TO HOME OR SELFCARE Is pt being admited?: No Does the pt Need Aspirin: No Condition: Stable Instructions: Osteoarthritis (ED), Knee Effusion (ED), Diet for Ulcers and Gastritis (ED), Gastroesophageal Reflux Disease (ED) Referrals: KEL SAMUEL MD [Staff Physician] - 3-5 Days Time of Disposition: 13:51
== END 2019-01-28 14:01 | disposition home or self-care (01) ==
LOC: ED 12:44
DX: K21.9 Gastro-esophageal reflux disease without esophagitis (principal); M12.862 Other specific arthropathies, not elsewhere classified, left knee; I10 Essential (primary) hypertension; M19.90 Unspecified osteoarthritis, unspecified site; J45.909 Unspecified asthma, uncomplicated; Z79.899 Other long term (current) drug therapy; Z88.6 Allergy status to analgesic agent
CPT/HCPCS: 99282

== ENCOUNTER 2021-01-12 00:50 | Observation (INO) | payer MEDICARE ==
--- NOTE | 2021-01-12 01:33 | Emergency Department Report ---
- General Chief complaint: Weakness Stated complaint: WEAKNESS PUI?: Yes Time Seen by Provider: 01/12/21 01:29 Source: EMS Mode of arrival: Stretcher Limitations: Language Barrier, Altered Mental Status - History of Present Illness Initial comments: Patient is an 85-year-old female that presents emergency room for weakness, confusion, forgetfulness,. Daughter is at bedside to help with the language barrier. Daughter states that for the last 2 to 3 days the patient has been weaker and having increased confusion. Patient denies dysuria. Patient comp lains of epigastric abdominal pain at times but is not having any at this time.. Daughter states that she has had some constipation at times. Patient denies fever and chills. Patient denies chest pain or shortness of breath. Patient denies nausea vomiting. Patient is alert and oriented x1. Patient denies recent travel. Patient denies recent international travel. Patient denies exposure to the novel coronavirus. Patient denies sick contacts. Patient denies fever and chills. Patient denies cough. Patient denies diarrhea. Patient denies coming in contact with anybody with symptoms of the novel coronavirus. MD Complaint: generalized weakness -: Sudden, year(s) Location: generalized Severity: severe Severity scale (0 -10): 0 Consistency: constant Improves with: none Worsens with: none Associated Symptoms: confusion - Related Data Home Medications Medication Instructions Recorded Confirmed Last Taken Aspirin EC [Halfprin EC] 81 mg PO QDAY 02/01/17 01/24/18 Unknown Omeprazole Magnesium [PriLOSEC Otc] 20 mg PO QDAY 02/01/17 01/24/18 Unknown Albuterol Sulfate [Ventolin Hfa] 2 puff IH Q4H PRN 01/24/18 01/24/18 Unknown Alendronate Sodium [Fosamax] 70 mg PO QWEEK 01/24/18 01/24/18 Unknown Diclofenac Sodium [Voltaren] 2 gm TP QID 01/24/18 01/24/18 Unknown Pentoxifylline [TRENtal] 400 mg PO QDAY 01/24/18 01/24/18 Unknown Simvastatin [Zocor] 20 mg PO QPM 01/24/18 01/24/18 Unknown bisacodyL [Dulcolax tab] 5 mg PO DAILY PRN 01/24/18 01/24/18 Unknown Previous Rx's Medication Instructions Recorded Last Taken Type Ibuprofen [Motrin 600 MG tab] 600 mg PO Q6H PRN tablet 01/27/18 Unknown Rx Famotidine [Pepcid] 20 mg PO BID #20 tablet 01/28/19 Unknown Rx traMADoL [Ultram] 50 mg PO Q6HR PRN #12 tablet 01/28/19 Unknown Rx Allergies Allergy/AdvReac Type Severity Reaction Status Date / Time acetaminophen Allergy Vomiting Verified 01/12/21 01:55 [From Tylenol-Codeine #3] codeine Allergy Vomiting Verified 01/12/21 01:55 [From Tylenol-Codeine #3] ED Review of Systems ROS: Stated complaint: WEAKNESS Other details as noted in HPI Comment: Unobtainable due to pts medical conditions ED Past Medical Hx - Past Medical History Previous Medical History?: Yes Hx Hypertension: Yes Hx Arthritis: Yes Hx Asthma: Yes Additional medical history: abd pain, headache - Surgical History Past Surgical History?: Yes Additional Surgical History: rectal polyps - Family History Family history: no significant - Social History Smoking Status: Never Smoker Substance Use Type: None - Medications Home Medications: Home Medications Medication Instructions Recorded Confirmed Last Taken Type Aspirin EC [Halfprin EC] 81 mg PO QDAY 02/01/17 01/24/18 Unknown History Omeprazole Magnesium [PriLOSEC Otc] 20 mg PO QDAY 02/01/17 01/24/18 Unknown History Albuterol Sulfate [Ventolin Hfa] 2 puff IH Q4H PRN 01/24/18 01/24/18 Unknown History Alendronate Sodium [Fosamax] 70 mg PO QWEEK 01/24/18 01/24/18 Unknown History Diclofenac Sodium [Voltaren] 2 gm TP QID 01/24/18 01/24/18 Unknown History Pentoxifylline [TRENtal] 400 mg PO QDAY 01/24/18 01/24/18 Unknown History Simvastatin [Zocor] 20 mg PO QPM 01/24/18 01/24/18 Unknown History bisacodyL [Dulcolax tab] 5 mg PO DAILY PRN 01/24/18 01/24/18 Unknown History Ibuprofen [Motrin 600 MG tab] 600 mg PO Q6H PRN tablet 01/27/18 Unknown Rx Famotidine [Pepcid] 20 mg PO BID #20 tablet 01/28/19 Unknown Rx traMADoL [Ultram] 50 mg PO Q6HR PRN #12 tablet 01/28/19 Unknown Rx ED Physical Exam - General Limitations: Language Barrier General appearance: alert, in no apparent distress - Head Head exam: Present: atraumatic, normocephalic - Eye Eye exam: Present: normal appearance, PERRL Pupils: Present: normal accommodation - ENT ENT exam: Present: mucous membranes dry - Neck Neck exam: Present: normal inspection - Respiratory Respiratory exam: Present: normal lung sounds bilaterally. Absent: respiratory distress, wheezes, rales - Cardiovascular Cardiovascular Exam: Present: regular rate, normal rhythm. Absent: systolic murmur, diastolic murmur, rubs, gallop - GI/Abdominal GI/Abdominal exam: Present: soft, tenderness, normal bowel sounds. Absent: distended, guarding - Extremities Exam Extremities exam: Present: normal inspection - Back Exam Back exam: Present: normal inspection - Neurological Exam Neurological exam: Present: alert, altered, CN II-XII intact, normal gait - Psychiatric Psychiatric exam: Present: normal affect, normal mood - Skin Skin exam: Present: warm, dry, intact, normal color. Absent: rash - Assessment Assessment Interval: Baseline - Level of Consciousness 1a. Level of Consciousness: alert/keenly responsive - LOC Questions 1b. LOC Questions: answers 1 question correctly - LOC Command 1c. LOC Commands: performs tasks correctly - Best Gaze 2. Best Gaze: normal - Visual 3. Visual: no visual loss - Facial Palsy 4. Facial Palsy: normal symmetrical movement - Motor Arm 5a. Motor Arm Left: no drift 5b. Motor Arm Right: no drift - Motor Leg 6a. Motor Leg Left: no drift 6b. Motor Leg Right: no drift - Limb Ataxia 7. Limb Ataxia: absent - Sensory 8. Sensory: normal - Best Language 9. Best Language: no aphasia - Dysarthria 10. Dysarthria: normal - Extinction and Inattention 11. Extinction/Inattention: no abnormality - Scoring Total Score: 1 Stroke Severity: Minor Stroke ED Course Vital Signs 01/12/21 01/12/21 01/12/21 01:15 01:30 02:00 Temperature 98.5 F Pulse Rate 111 H 110 H 97 H Respiratory 18 14 22 Rate Blood Pressure 98/68 69/43 Blood Pressure 98/68 [Right] O2 Sat by Pulse 96 96 98 Oximetry 01/12/21 01/12/21 01/12/21 02:16 02:30 02:46 Temperature Pulse Rate 92 H 96 H 89 Respiratory 13 17 17 Rate Blood Pressure 126/81 145/82 134/88 Blood Pressure [Right] O2 Sat by Pulse 97 98 99 Oximetry 01/12/21 01/12/21 01/12/21 03:00 03:16 03:30 Temperature Pulse Rate 90 94 H 88 Respiratory 17 18 12 Rate Blood Pressure 150/81 156/87 165/132 Blood Pressure [Right] O2 Sat by Pulse 97 97 96 Oximetry 01/12/21 01/12/21 01/12/21 03:50 04:00 04:16 Temperature Pulse Rate 91 H 88 89 Respiratory 23 17 19 Rate Blood Pressure 163/79 163/79 160/70 Blood Pressure [Right] O2 Sat by Pulse 97 98 98 Oximetry 01/12/21 04:30 Temperature Pulse Rate 80 Respiratory 19 Rate Blood Pressure 114/95 Blood Pressure [Right] O2 Sat by Pulse 98 Oximetry - Reevaluation(s) Reevaluation #1: Patient given fluids her blood pressure is improved. Patient states she is feeling a little bit better. 01/12/21 02:22 Reevaluation #2: I discussed all results with patient. I discussed plan of care with patient. Patient agrees with plan of care and admission. Patient to be admitted to the hospitalist service. 01/12/21 05:22 - Consultations Consultation #1: Hospitalist consulted for admission. Hospitalist to admit patient. 01/12/21 05:22 ED Medical Decision Making - Lab Data Result diagrams: 01/12/21 01:49 01/12/21 01:49 - EKG Data -: EKG Interpreted by Me EKG shows normal: sinus rhythm, axis, intervals, QRS complexes, ST-T waves Rate: normal - Radiology Data Radiology results: report reviewed, image reviewed interpreted by me: Chest x-ray: No pneumonia, no pneumothorax, no foreign body, no osseous findings, no acute findings I reviewed the CT of the head and a CT of the abdomen pelvis. Both CT showed no acute findings. - Medical Decision Making Patient is an 85-year-old female that presents emergency room with complaints of altered mental status, confusion, weakness, abdominal pain, constipation. On initial valuation, the patient was found to be hypotensive patient was given IV fluids and broad-spectrum antibiotics. Patient had labs done which were essentially unremarkable except for electrolyte abnormalities and dehydration and lactic acidosis. Patient had a chest x-ray which was negative for acute findings. I personally reviewed the chest x-ray read patient an EKG which was negative for acute findings normal ST. Personally reviewed the EKG. Patient had a CT scan of the abdomen and head and both showed no acute findings. Sylwia ent admitted to the hospital service for further evaluation and treatment. Critical care time documented due to the multiple reassessments, prolonged time at the bedside, interpretation of diagnostics and labs. - Differential Diagnosis Dehydration, confusion, weakness, abdominal pain, UTI, SBO Critical Care Time: Yes Critical care time in (mins) excluding proc time.: 35 Critical care attestation.: If time is entered above; I have spent that time in minutes in the direct care of this critically ill patient, excluding procedure time. Critical Care Time: 35 minutes ED Disposition Clinical Impression: Dehydration, Lactic acid acidosis, Confusion, Weakness, Hyponatremia Abdominal pain Qualifiers: Abdominal location: generalized Qualified Code(s): R10.84 - Generalized abdominal pain Altered mental state Qualifiers: Altered mental status type: unspecified Qualified Code(s): R41.82 - Altered mental status, unspecified Hypotension Qualifiers: Hypotension type: unspecified hypotension type Qualified Code(s): I95.9 - Hypotension, unspecified Disposition: -09 OP ADMIT IP TO THIS HOSP Is pt being admited?: Yes Does the pt Need Aspirin: No Condition: Critical Time of Disposition: 05:20
[2021-01-12] MEDS ORDERED: SODIUM CHLORIDE 0.9% 1000 ML 1,000 ML IV ONE ×2 (01:54→04:06)
--- NOTE | 2021-01-12 02:27 | XRay Report ---
CHEST 1 VIEW, 01/12/2021 1:31 AM CLINICAL INFORMATION/INDICATION: Altered mental status COMPARISON: Chest radiograph, 02/01/2017 FINDINGS: SUPPORT DEVICES: None. HEART: The cardiac silhouette is normal in size. LUNGS/PLEURA: The lungs are clear of focal airspace disease or significant pleural effusion. ADDITIONAL FINDINGS: No additional acute findings. IMPRESSION: 1. No evidence of acute cardiopulmonary process. Signer Name: Leslie Campuzano MD Signed: 01/12/2021 2:22 AM Workstation Name: [id number]
[2021-01-12 02:29] LABS: Basophils % (Auto) 0.3 % (0.0-1.8); Eosinophils % (Auto) 0.1 % (0.0-4.3); Hematocrit 48.8 % (30.3-42.9); Hemoglobin 16.6 gm/dl (10.1-14.3); Lymphocytes # (Auto) 1.5 K/mm3 (1.2-5.4); Lymphocytes % (Auto) 10.9 % (13.4-35.0); Mean Corpuscular HGB Conc 34 % (30-34); Mean Corpuscular Volume 93 fl (79-97); Red Blood Count 5.25 M/mm3 (3.65-5.03); Red Cell Distribution Width 13.2 % (13.2-15.2)
[2021-01-12 02:34] LABS: Platelet Count 163 K/mm3 (140-440)
[2021-01-12 02:38] LABS: INR 0.89 (0.87-1.13); Partial Thromboplastin Time 27.3 Sec. (24.2-36.6)
[2021-01-12 02:47] LABS: Alanine Aminotransferase 35 units/L (7-56); Albumin 4.1 g/dL (3.9-5); BUN/Creatinine Ratio 47; Blood Urea Nitrogen 42 mg/dL (7-17); Calcium 9.8 mg/dL (8.4-10.2); Hemolysis Index 53
[2021-01-12] MEDS ORDERED: CEFEPIME/NS 2 GM/100 ML 2 GM/100 ML BAG IV ONE (04:06)
[2021-01-12 04:41] LABS: Bacteria,Urine 1+ /HPF (Negative); Bilirubin,Urine NEG (Negative); Blood,Urine SM (Negative); Color,Urine Yellow (Yellow); Mucus,Urine FEW /HPF; Protein,Urine <15 mg/dL mg/dL (Negative); Urobilinogen,Urine < 2.0 mg/dL (<2.0)
--- NOTE | 2021-01-12 05:04 | Cat Scan Report ---
Examination: CT of the head without contrast Clinical information: Altered mental status Comparison: Altered mental status Technical: Multiple axial CT images of the head were obtained without intravenous contrast. Sagittal and coronal reformats were obtained. All CTs at this facility utilize dose reduction techniques inc luding automated exposure control, iterative reconstruction and weight based dosing when appropriate to reduce patient radiation dose to as low as reasonable achievable. Findings: INTRACRANIAL CONTENTS: There is no CT evidence of acute intracranial hemorrhage. Confluent regions of hypodensity are again noted within the periventricular and deep white matter. There is no evidence o f mass effect or midline shift. The ventricular system remains normal in size. SKULL: No acute bony abnormality is visualized. ORBITS: The bilateral orbits and globes appear normal PARANASAL SINUSES / MASTOID AIR CELLS: Paranasal sinuses and mastoid air cells appear clear. Impression: 1. No CT evidence of acute intracranial process. 2. Changes associated with chronic small vessel ischemic disease and atrophy. Signer Name: Leslie Campuzano MD Signed: 01/12/2021 4:59 AM Workstation Name: [id number]
--- NOTE | 2021-01-12 05:10 | Cat Scan Report ---
CT ABDOMEN AND PELVIS WITH IV CONTRAST INDICATION: Generalized abdominal pain TECHNIQUE: Following the administration of intravenous contrast, multiple axial CT images of the abdo men and pelvis were acquired. Sagittal and coronal reformats were obtained. All CT performed at this facility utilize dose reduction techniques including automated exposure control, iterative reconstru ction and weight based dosing when appropriate to reduce patient radiation dose to as low as reasonab ly achievable. COMPARISON: None FINDINGS: Limited imaging of the bilateral lung bases demonstrates no acute abnormality. ABDOMEN: The gallbladder has been removed. The liver, spleen, pancreas, bilateral adrenal glands and bilateral kidneys show no evidence of acute abnormality. The abdominal aorta is normal in caliber with scatter ed atherosclerotic calcifications. There is no evidence of bowel obstruction or free fluid. The appen keshav is visualized and appears normal. PELVIS: No free fluid is seen within the pelvis. The urinary bladder appears normal. BONES AND SOFT TISSUES: Evaluation of bony structures demonstrates marked bony degenerative changes o f the thoracolumbar spine. There has been previous kyphoplasty or vertebroplasty. Evaluation of soft tissue structures demonstrates no acute soft tissue abnormality. IMPRESSION: 1. No evidence of acute inflammatory or obstructive process within the abdomen or pelvis. Signer Name: Leslie Campuzano MD Signed: 01/12/2021 5:05 AM Workstation Name: [id number]
--- NOTE | 2021-01-12 05:52 | History and Physical Report ---
History of Present Illness Date of examination: 01/12/21 Date of admission: 01/12/21 Chief complaint: AMS History of present illness: Patient is an 85-year-old female that presents emergency room for weakness, confusion, forgetfulness,. Daughter is at bedside to help with the language barrier. Daughter states that for the last 2 to 3 days the patient has been wea ker and having increased confusion. Patient denies dysuria. Patient complains of epigastric abdominal pain at times but is not having any at this time.. Daughter states that she has had some constipation at times. Patient denies fever and chills. Patient denies chest pain or shortness of breath. Patient denies nausea vomiting. Patient seen in the ED at bedside. ED work-up WBC 13.7, hemoglobin 16.6 platelets 163, sodium 130, potassium 3.9, chloride 87.5, creatinine 0.9, lactic acid 4.40, serum glucose 215, and ammonia level 19. Patient daughter at the bedside. Patient reports constipation with discomfort. Will start patient on laxative as needed I reviewed the patient medication record, lab values and vital signs. WBC elevated likely reactive sodium level is low possibly due to dehydration we will start gentle IV hydration with normal saline. Will start empiric antibiotic and monitor WBC. Urinalysis is done but no sign or symptom of UTI. CT of the head is done negative, chest x-ray done negative. Past History Past Medical History: diabetes, hypertension, hyperlipidemia, other (asthma) Past Surgical History: cholecystectomy (in 1991) Social history: lives with family Family history: no significant family history Medications and Allergies Allergies Allergy/AdvReac Type Severity Reaction Status Date / Time acetaminophen Allergy Vomiting Verified 01/12/21 01:55 [From Tylenol-Codeine #3] codeine Allergy Vomiting Verified 01/12/21 01:55 [From Tylenol-Codeine #3] Home Medications Medication Instructions Recorded Confirmed Last Taken Type Aspirin EC [Halfprin EC] 81 mg PO QDAY 02/01/17 01/24/18 Unknown History Omeprazole Magnesium [PriLOSEC Otc] 20 mg PO QDAY 02/01/17 01/24/18 Unknown History Albuterol Sulfate [Ventolin Hfa] 2 puff IH Q4H PRN 01/24/18 01/24/18 Unknown History Alendronate Sodium [Fosamax] 70 mg PO QWEEK 01/24/18 01/24/18 Unknown History Diclofenac Sodium [Voltaren] 2 gm TP QID 01/24/18 01/24/18 Unknown History Pentoxifylline [TRENtal] 400 mg PO QDAY 01/24/18 01/24/18 Unknown History Simvastatin [Zocor] 20 mg PO QPM 01/24/18 01/24/18 Unknown History bisacodyL [Dulcolax tab] 5 mg PO DAILY PRN 01/24/18 01/24/18 Unknown History Ibuprofen [Motrin 600 MG tab] 600 mg PO Q6H PRN tablet 01/27/18 Unknown Rx Famotidine [Pepcid] 20 mg PO BID #20 tablet 01/28/19 Unknown Rx traMADoL [Ultram] 50 mg PO Q6HR PRN #12 tablet 01/28/19 Unknown Rx Review of Systems Constitutional: weakness Ears, nose, mouth and throat: no epistaxis, no bleeding gums Cardiovascular: high blood pressure Gastrointestinal: constipation, indigestion Genitourinary Female: no vaginal itching Musculoskeletal: gait dysfunction (recent fall) Integumentary: no pruritis, no redness Neurological: confusion, gait dysfunction Psychiatric: anxiety Hematologic/Lymphatic: no easy bruising, no easy bleeding Allergic/Immunologic: no urticaria Exam - Constitutional Vitals: Temp Pulse Resp BP Pulse Ox 98.5 F 80 19 114/95 98 01/12/21 01:15 01/12/21 04:30 01/12/21 04:30 01/12/21 04:30 01/12/21 04:30 General appearance: Present: mild distress, obese - EENT Eyes: Present: PERRL ENT: hearing intact, clear oral mucosa - Neck Neck: Present: supple, normal ROM - Respiratory Respiratory effort: normal Respiratory: bilateral: CTA - Cardiovascular Heart rate: 80 Heart Sounds: Present: S1 & S2. Absent: rub, click - Extremities Extremities: pulses symmetrical, No edema Peripheral Pulses: within normal limits - Abdominal General gastrointestinal: Present: soft, non-tender, non-distended, normal bowel sounds Female genitourinary: Present: normal - Integumentary Integumentary: Present: clear, warm, dry - Musculoskeletal Musculoskeletal: strength equal bilaterally, generalized weakness - Psychiatric Psychiatric: appropriate mood/affect, intact judgment & insight - Neurologic Neurologic: CNII-XII intact, moves all extremities - Allied Health Allied health notes reviewed: nursing HEART Score - HEART Score Troponin: Troponin T < 0.010 ng/mL (0.00-0.029) 01/12/21 01:49 Results - Labs CBC & Chem 7: 01/12/21 01:49 01/12/21 01:49 Labs: Abnormal lab results 01/12/21 01/12/21 01/12/21 Range/Units 01:49 01:49 01:49 WBC 13.7 H (4.5-11.0) K/mm3 RBC 5.25 H (3.65-5.03) M/mm3 Hgb 16.6 H (10.1-14.3) gm/dl Hct 48.8 H (30.3-42.9) % Lymph % (Auto) 10.9 L (13.4-35.0) % Orange # (Auto) 1.0 H (0.0-0.8) K/mm3 Seg Neutrophils % 81.7 H (40.0-70.0) % Seg Neutrophils # 11.2 H (1.8-7.7) K/mm3 Sodium 130 L (137-145) mmol/L Chloride 87.5 L (98-107) mmol/L BUN 42 H (7-17) mg/dL Glucose 215 H (65-100) mg/dL Lactic Acid 4.40 H* (0.7-2.0) mmol/L Ammonia (25-60) umol/L Ur Specific [place] (1.003-1.030) 01/12/21 01/12/21 Range/Units 01:49 04:17 WBC (4.5-11.0) K/mm3 RBC (3.65-5.03) M/mm3 Hgb (10.1-14.3) gm/dl Hct (30.3-42.9) % Lymph % (Auto) (13.4-35.0) % Orange # (Auto) (0.0-0.8) K/mm3 Seg Neutrophils % (40.0-70.0) % Seg Neutrophils # (1.8-7.7) K/mm3 Sodium (137-145) mmol/L Chloride (98-107) mmol/L BUN (7-17) mg/dL Glucose (65-100) mg/dL Lactic Acid (0.7-2.0) mmol/L Ammonia 19.0 L (25-60) umol/L Ur Specific [place] 1.031 H (1.003-1.030) Assessment and Plan - Patient Problems (1) Acute encephalopathy Current Visit: Yes Status: Acute Plan to address problem: Altered mental status unknown cause CT of the head done negative for acute finding Safety and fall precaution at all time PT OT consult. We will consult psych for mental status evaluation and medication recommendation if needed. (2) Dehydration Current Visit: Yes Status: Acute Plan to address problem: Continue IV hydration with normal saline (3) Hyponatremia Current Visit: Yes Status: Acute Plan to address problem: Hyponatremia likely secondary to dehydration Patient is on IV fluid and monitor sodium level (4) GERD (gastroesophageal reflux disease) Current Visit: Yes Status: Acute Plan to address problem: Resume home PPI (5) Hypertension Current Visit: Yes Status: Acute Plan to address problem: Monitor blood pressure Resume home antihypertensive As needed hydralazine (6) Diabetes Current Visit: Yes Status: Acute Plan to address problem: Monitor blood sugar with SSI Check hemoglobin A1c (7) Leukocytosis (leucocytosis) Current Visit: Yes Status: Acute Plan to address problem: Leukocytosis ? Cause Patient have no evidence of sepsis. Patient had normal vital signs and no temperatures. Monitor WBC- will start antibiotic if needed Blood culture follow-up with results (8) DVT prophylaxis Current Visit: Yes Status: Acute Plan to address problem: Subcutaneous heparin
[2021-01-12] MEDS ORDERED: ACETAMINOPHEN 325 MG TAB PO PRN (05:58)
[2021-01-12] MEDS ORDERED: ALUM-MAG HYDROXIDE-SIMETHICONE 200-200-20MG/5ML ORAL LIQD 30 ML PO PRN (05:58)
[2021-01-12] MEDS ORDERED: SENNOSIDES 8.6 MG TAB PO PRN (05:58)
[2021-01-12] MEDS ORDERED: ONDANSETRON 4 MG/2 ML INJ IV PRN (05:58)
[2021-01-12] MEDS ORDERED: MAGNESIUM HYDROXIDE (MOM) ORAL LIQD UDC PO ONE (05:58)
[2021-01-12] MEDS ORDERED: hydrALAZINE 20 MG/1 ML INJ IV PRN (06:17)
[2021-01-12] MEDS ORDERED: ASPIRIN EC 81 MG TAB PO ONE (06:49)
[2021-01-12] MEDS: HEPARIN 5,000 UNIT/1 ML VIAL SUB-Q SCH ×2 (09:08→21:47)
[2021-01-12] MEDS: INSULIN REGULAR, HUMAN 100 UNITS/1 ML SUB-Q SCH ×4 (09:08→21:55)
--- NOTE | 2021-01-12 09:28 | Event Note ---
Date: 01/12/21 Patient seen and examined this morning clinically stable awaiting reports of repeat labs. She states that she did not sleep well yesterday when she did this morning. CT abdomen and pelvis including CT head all negative. Will monitor May a.m. and likely discharge tomorrow if continues to show improvement. We will also await PT OT evaluation
[2021-01-12] MEDS: SODIUM CHLORIDE 0.9% 1000 ML 1,000 ML IV SCH (12:40)
[2021-01-12 14:19] LABS: Basophils % (Auto) 0.2 % (0.0-1.8); Eosinophils % (Auto) 0.2 % (0.0-4.3); Hematocrit 41.3 % (30.3-42.9); Hemoglobin 14.2 gm/dl (10.1-14.3); Lymphocytes # (Auto) 1.8 K/mm3 (1.2-5.4); Lymphocytes % (Auto) 18.5 % (13.4-35.0); Mean Corpuscular HGB Conc 35 % (30-34); Mean Corpuscular Volume 93 fl (79-97); Monocytes % (Auto) 9.5 % (0.0-7.3); Platelet Count 136 K/mm3 (140-440); Red Blood Count 4.45 M/mm3 (3.65-5.03); Red Cell Distribution Width 13.5 % (13.2-15.2)
[2021-01-12 14:22] LABS: Chol/HDL Ratio 4.38 %
[2021-01-13 04:42] VITALS: BP 122/64
[2021-01-13 05:21] LABS: Basophils % (Auto) 0.2 % (0.0-1.8); Eosinophils % (Auto) 0.3 % (0.0-4.3); Hematocrit 38.5 % (30.3-42.9); Hemoglobin 13.4 gm/dl (10.1-14.3); Lymphocytes # (Auto) 1.8 K/mm3 (1.2-5.4); Lymphocytes % (Auto) 20.8 % (13.4-35.0); Mean Corpuscular HGB Conc 35 % (30-34); Mean Corpuscular Volume 93 fl (79-97); Monocytes # (Auto) 0.7 K/mm3 (0.0-0.8); Monocytes % (Auto) 7.6 % (0.0-7.3); Platelet Count 124 K/mm3 (140-440); Red Blood Count 4.17 M/mm3 (3.65-5.03); Red Cell Distribution Width 13.5 % (13.2-15.2)
[2021-01-13 05:44] LABS: Alanine Aminotransferase 20 units/L (7-56); Albumin 2.8 g/dL (3.9-5); Blood Urea Nitrogen 14 mg/dL (7-17); Calcium 7.8 mg/dL (8.4-10.2); Hemolysis Index 5
[2021-01-13 05:51] LABS: BUN/Creatinine Ratio 35
[2021-01-13] MEDS: SODIUM CHLORIDE 0.9% 1000 ML 1,000 ML IV SCH (06:27)
[2021-01-13] MEDS ORDERED: POTASSIUM CHLORIDE 10 MEQ 10 MEQ/100 ML BAG IV ONE (06:49)
[2021-01-13] MEDS ORDERED: POTASSIUM CHLORIDE ER 20 MEQ TAB PO ONE (07:18)
[2021-01-13] MEDS: INSULIN REGULAR, HUMAN 100 UNITS/1 ML SUB-Q SCH ×2 (09:21→12:41)
[2021-01-13] MEDS ORDERED: traMADol 50 MG TAB PO PRN (09:23)
--- NOTE | 2021-01-13 09:38 | Consultation ---
History of Present Illness - Reason for Consult Consult date: 01/13/21 Reason for consult: MHE Requesting physician: DEANNA COLMENARES - Chief Complaint Chief complaint: AMS - History of Present Psychiatric Illness Per ED Provider: Patient is an 85-year-old female that presents emergency room for weakness, confusion, forgetfulness,. Daughter is at bedside to help with the language barrier. Daughter states that for the last 2 to 3 days the patient has been weaker and having increased confusion. Patient denies dysuria. Patient complains of epigastric abdominal pain at times but is not having any at this time.. Daughter states that she has had some constipation at times. Patient denies fever and chills. Patient denies chest pain or shortness of breath. Patient denies nausea vomiting. Patient is alert and oriented x1. [facility] [employer] language specialist services used. Patient is a 85-year-old [place] female with no significant past psychiatric history who currently resides with her granddaughter presented to the ED with chief complaint of weakness and stomachaches. Patient states she knows she is currently in the hospital, but does not know the current date. Patient states that she is here because she felt very weak, dizzy and that her granddaughter called the ambulance and came here by ambulance. Patient stated that she does get some disability related to memory issues. Endorses that she sometimes hears a shadow and when she looks she does not really see anything. But she denies any suicidal ideation homicidal ideation, or seeing images that are scary or someone talking to her constantly. Endorses having had issues, cholesterol problems, hypertension. PAST PSYCHIATRIC HISTORY Diagnoses: None reported Suicide attempts or Self-harm behavior: None reported Prior psychiatric hospitalizations: None reported Substance Abuse history: None report Previous psychiatric medications tried: None reported Outpatient treatment: PAST MEDICAL HISTORY: Unspecified heart disease, hypertension, dyslipidemia Family Psychiatric History: None reported or documented SOCIAL HISTORY Marital Status: Living Arrangements: With granddaughter Employment Status: Disabled Access to guns/weapons: None report Education: Never went to school History of Abuse: None reported Legal History: None reported REVIEW OF SYSTEMS Constitutional: Negative for weight loss ENT: Negative for stridor Respiratory: Negative for cough or hemoptysis All other systems reviewed and are negative MENTAL STATUS EXAMINATION General Appearance and Behavior: Age appropriate, good hygiene, wearing appropriate clothes, good eye contact, cooperative polite with questioning. Cooperation: Participating/engaged Psychomotor Behavior: unremarkable and within normal limits Mood: Good Affect and affective range: congruent with mood Thought Process: Fluent/Logical, Thought Content: Within reality, Speech: Normal volume, Regular rate and rhythm, Intellectual Functioning: Average Suicidal Ideation: Denies SI Homicidal Ideation: Denies HI Impulse Control: Unimpaired Insight and Judgment: Normal insight and judgment, Memory: Short-term memory intact Attention: Normal, Orientation: Alert, oriented, Diagnoses: Assessment and Plan - Psychiatric problem (1) Behavior concern in adult Current Visit: Yes Status: Acute Treatment Plan Continue current medical management no indication for acute inpatient psychiatric based on this initial evaluation. Will be available for further evaluation as needed if anything changes. MEDICATIONS: Risks, benefits and alternatives of medications discussed with the patient, questions answered and consent obtained from patient. PSYCHOTHERAPY: Supportive psychotherapy provided MEDICAL: Per primary team DELIRIUM PRECAUTIONS: Please re-orient patient frequently, keep lights on during the day, and minimize benzodiazepines and opiates as these medications could worsen patient's confusion. FINAL FINISHER FORGING DIES: DISPOSITION: Do Not Recommend acute inpatient psychiatric hospitalization at this time. Case discussed with Dr. Spivey who agrees with current disposition LEGAL STATUS: FOLLOW-UP: Will sign off Thank you for the consult. Please contact with any questions and/or concerns. Medications and Allergies Allergies Allergy/AdvReac Type Severity Reaction Status Date / Time acetaminophen Allergy Vomiting Verified 01/12/21 01:55 [From Tylenol-Codeine #3] codeine Allergy Vomiting Verified 01/12/21 01:55 [From Tylenol-Codeine #3] Home Medications Medication Instructions Recorded Confirmed Last Taken Type Aspirin EC [Halfprin EC] 81 mg PO QDAY 02/01/17 01/24/18 Unknown History Omeprazole Magnesium [PriLOSEC Otc] 20 mg PO QDAY 02/01/17 01/24/18 Unknown History Albuterol Sulfate [Ventolin Hfa] 2 puff IH Q4H PRN 01/24/18 01/24/18 Unknown History Alendronate Sodium [Fosamax] 70 mg PO QWEEK 01/24/18 01/24/18 Unknown History Diclofenac Sodium [Voltaren] 2 gm TP QID 01/24/18 01/24/18 Unknown History Pentoxifylline [TRENtal] 400 mg PO QDAY 01/24/18 01/24/18 Unknown History Simvastatin [Zocor] 20 mg PO QPM 01/24/18 01/24/18 Unknown History bisacodyL [Dulcolax tab] 5 mg PO DAILY PRN 01/24/18 01/24/18 Unknown History Ibuprofen [Motrin 600 MG tab] 600 mg PO Q6H PRN tablet 01/27/18 Unknown Rx Famotidine [Pepcid] 20 mg PO BID #20 tablet 01/28/19 Unknown Rx traMADoL [Ultram] 50 mg PO Q6HR PRN #12 tablet 01/28/19 Unknown Rx Active Meds: Active Medications Acetaminophen (Acetaminophen 325 Mg Tab) 650 mg PO Q4H PRN PRN Reason: Pain MILD(1-3)/Fever >100.5/DAWSON Al Hydrox/Mg Hydrox/Simethicone (Alum-Mag Hydroxide-Simethicone [phone]/5ml Oral Liqd 30 Ml) 30 ml PO Q4H PRN PRN Reason: Indigestion Atorvastatin Calcium (Atorvastatin 40 Mg Tab) 40 mg PO QHS [facility] Last Admin: 01/12/21 21:47 Dose: 40 mg Documented by: Heparin Sodium (Porcine) (Heparin 5,000 Unit/1 Ml Vial) 5,000 unit SUB-Q Q12HR DOM Last Admin: 01/12/21 21:47 Dose: 5,000 unit Documented by: Hydralazine HCl (Hydralazine 20 Mg/1 Ml Inj) 5 mg IV Q4H PRN PRN Reason: Hypertension Sodium Chloride (Nacl 0.9% 1000 Ml) 1,000 mls @ 75 mls/hr IV DIRECT [facility] Last Admin: 01/13/21 06:27 Dose: 75 mls/hr Documented by: Insulin Human Regular (Insulin Regular, Human 100 Units/1 Ml) 0 units SUB-Q ACHS [facility]; Protocol Last Admin: 01/13/21 09:21 Dose: Not Given Documented by: Ondansetron HCl (Ondansetron 4 Mg/2 Ml Inj) 4 mg IV Q8H PRN PRN Reason: Nausea And Vomiting Pneumococcal Polyvalent Vaccine (Pneumococcal 23 Valent 0.5 Ml Vial) 0.5 ml IM .ONCE ONE Stop: 01/13/21 12:01 Senna (Sennosides 8.6 Mg Tab) 8.6 mg PO Q12HR PRN PRN Reason: Constipation Sodium Chloride (Sodium Chloride 0.9% 10 Ml Flush Syringe) 10 ml IV BID DOM Last Admin: 01/12/21 21:55 Dose: 10 ml Documented by: Sodium Chloride (Sodium Chloride 0.9% 10 Ml Flush Syringe) 10 ml IV PRN PRN PRN Reason: LINE FLUSH Tramadol HCl (Tramadol 50 Mg Tab) 50 mg PO Q6H PRN PRN Reason: Pain, Moderate (4-6) Mental Status Exam - Vital signs Last Vital Signs Temp 98.2 F 01/13/21 03:49 Pulse 83 01/13/21 04:00 Resp 17 01/13/21 07:39 BP 122/64 01/13/21 03:49 Pulse Ox 99 01/13/21 03:49 Results Result Diagrams: 01/13/21 03:59 01/13/21 03:59 Abnormal lab results 01/12/21 01/12/21 01/12/21 Range/Units 08:33 11:31 13:08 MCHC (30-34) % Plt Count (140-440) K/mm3 Wetzel % (Auto) (0.0-7.3) % Wetzel # (Auto) (0.0-0.8) K/mm3 Seg Neutrophils % (40.0-70.0) % Sodium (137-145) mmol/L Potassium (3.6-5.0) mmol/L Creatinine (0.6-1.2) mg/dL Glucose (65-100) mg/dL POC Glucose 170 H 140 H (70-105) mg/dL Hemoglobin A1c 7.4 H (4-6) % Calcium (8.4-10.2) mg/dL Total Protein (6.3-8.2) g/dL Albumin (3.9-5) g/dL Triglycerides (2-149) mg/dL Cholesterol (50-199) mg/dL LDL Cholesterol Direct (50-130) mg/dL 01/12/21 01/12/21 01/12/21 Range/Units 13:08 13:08 16:28 MCHC 35 H (30-34) % Plt Count 136 L (140-440) K/mm3 Wetzel % (Auto) 9.5 H (0.0-7.3) % Wetzel # (Auto) 1.0 H (0.0-0.8) K/mm3 Seg Neutrophils % 71.6 H (40.0-70.0) % Sodium (137-145) mmol/L Potassium (3.6-5.0) mmol/L Creatinine (0.6-1.2) mg/dL Glucose (65-100) mg/dL POC Glucose 198 H (70-105) mg/dL Hemoglobin A1c (4-6) % Calcium (8.4-10.2) mg/dL Total Protein (6.3-8.2) g/dL Albumin (3.9-5) g/dL Triglycerides 159 H (2-149) mg/dL Cholesterol 219 H (50-199) mg/dL LDL Cholesterol Direct 151 H (50-130) mg/dL 01/12/21 01/13/21 01/13/21 Range/Units 21:01 03:59 03:59 MCHC 35 H (30-34) % Plt Count 124 L (140-440) K/mm3 Wetzel % (Auto) 7.6 H (0.0-7.3) % Wetzel # (Auto) (0.0-0.8) K/mm3 Seg Neutrophils % 71.1 H (40.0-70.0) % Sodium 134 L (137-145) mmol/L Potassium 2.7 L* D (3.6-5.0) mmol/L Creatinine 0.4 L D (0.6-1.2) mg/dL Glucose 133 H (65-100) mg/dL POC Glucose 120 H (70-105) mg/dL Hemoglobin A1c (4-6) % Calcium 7.8 L D (8.4-10.2) mg/dL Total Protein 4.8 L D (6.3-8.2) g/dL Albumin 2.8 L (3.9-5) g/dL Triglycerides (2-149) mg/dL Cholesterol (50-199) mg/dL LDL Cholesterol Direct (50-130) mg/dL 01/13/21 Range/Units 07:28 MCHC (30-34) % Plt Count (140-440) K/mm3 Wetzel % (Auto) (0.0-7.3) % Wetzel # (Auto) (0.0-0.8) K/mm3 Seg Neutrophils % (40.0-70.0) % Sodium (137-145) mmol/L Potassium (3.6-5.0) mmol/L Creatinine (0.6-1.2) mg/dL Glucose (65-100) mg/dL POC Glucose 140 H (70-105) mg/dL Hemoglobin A1c (4-6) % Calcium (8.4-10.2) mg/dL Total Protein (6.3-8.2) g/dL Albumin (3.9-5) g/dL Triglycerides (2-149) mg/dL Cholesterol (50-199) mg/dL LDL Cholesterol Direct (50-130) mg/dL All other labs normal. Assessment and Plan - Psychiatric problem (1) Behavior concern in adult Current Visit: Yes Status: Acute
[2021-01-13] MEDS: HEPARIN 5,000 UNIT/1 ML VIAL SUB-Q SCH (10:04)
[2021-01-13] MEDS ORDERED: PNEUMOCOCCAL 23 Valent 0.5 ML VIAL IM ONE (12:00)
--- NOTE | 2021-01-13 12:59 | Discharge Summary ---
Providers - Providers Date of Admission: 01/12/21 05:36 Attending physician: DEANNA COLMENARES MD 01/12/21 06:07 Occupational Therapy Evaluate and Treat [CONS] Stat Comment: Reason For Exam: weakness Physical Therapy Evaluation and Treat [CONS] Stat Comment: Reason For Exam: weakness 01/12/21 19:21 Consult to Wound/ET Nurse [CONS] Routine Reason For Exam: wound eval Primary care physician: WORM FARMER Hospitalization Reason for admission: Altered mental status Condition: Stable Hospital course: Patient is an 85-year-old female that presents emergency room for weakness, confusion, forgetfulness,. Daughter is at bedside to help with the language barrier. Daughter states that for the last 2 to 3 days the patient has been w eaker and having increased confusion. Patient denies dysuria. Patient complains of epigastric abdominal pain at times but is not having any at this time.. Daughter states that she has had some constipation at times. Patient denies fever and chills. Patient denies chest pain or shortness of breath. Patient denies nausea vomiting. Patient seen in the ED at bedside. ED work-up WBC 13.7, hemoglobin 16.6 platelets 163, sodium 130, potassium 3.9, chloride 87.5, creatinine 0.9, lactic acid 4.40, serum glucose 215, and ammonia level 19. Patient daughter at the bedside. Patient reports constipation with discomfort. Will start patient on laxative as needed I reviewed the patient medication record, lab values and vital signs. WBC elevated likely reactive sodium level is low possibly due to dehydration we will start gentle IV hydration with normal saline. Will start empiric antibiotic and monitor WBC. Urinalysis is done but no sign or symptom of UTI. CT of the head is done negative, chest x-ray done negative. Patient was treated as noted above. Patient was was seen by psych and cleared from psych. She is clinically improved today with no new complaints. Patient also noted to have mild hypokalemia and was corrected. (1) Acute encephalopathy Current Visit: Yes Status: Acute Plan to address problem: Altered mental status unknown cause CT of the head done negative for acute finding Safety and fall precaution at all time PT OT consult. We will consult psych for mental status evaluation and medication recommendation if needed. (2) Dehydration Current Visit: Yes Status: Acute Plan to address problem: Continue IV hydration with normal saline (3) Hyponatremia Current Visit: Yes Status: Acute Plan to address problem: Hyponatremia likely secondary to dehydration Patient is on IV fluid and monitor sodium level (4) GERD (gastroesophageal reflux disease) Current Visit: Yes Status: Acute Plan to address problem: Resume home PPI (5) Hypertension Current Visit: Yes Status: Acute Plan to address problem: Monitor blood pressure Resume home antihypertensive As needed hydralazine (6) Diabetes Current Visit: Yes Status: Acute Plan to address problem: Monitor blood sugar with SSI Check hemoglobin A1c (7) Leukocytosis (leucocytosis) Current Visit: Yes Status: Acute Plan to address problem: Leukocytosis ? Cause Patient have no evidence of sepsis. Patient had normal vital signs and no temperatures. Monitor WBC- will start antibiotic if needed Blood culture follow-up with results (8) hypokalemia Disposition: [id number] HOME UNDER HOME HLTH Final Discharge Diagnosis (Prints w/discharge instructions): Acute metabolic encephalopathy Time spent for discharge: 35 minutes Core Measure Documentation - Palliative Care Palliative Care/ Comfort Measures: Not Applicable - Core Measures Any of the following diagnoses?: none Exam - Physical Exam Narrative exam: VITAL SIGNS: Reviewed. GENERAL: The patient appears normally developed, Vital signs as documented. HEAD: No signs of head trauma. EYES: Pupils are equal. Extraocular motions intact. EARS: Hearing grossly intact. MOUTH: Oropharynx is normal. NECK: No adenopathy, no JVD. CHEST: Chest with clear breath sounds bilaterally. No wheezes, rales, or rhonchi. CARDIAC: Regular rate and rhythm. S1 and S2, without murmurs, gallops, or rubs. VASCULAR: No Edema. Peripheral pulses normal and equal in all extremities. ABDOMEN: Soft, non tender and non distended. No rebound or guarding, and no masses palpated. Bowel Sounds normal. MUSCULOSKELETAL: Good range of motion of all major joints. Extremities without clubbing, cyanosis or edema. NEUROLOGIC EXAM: Alert and oriented x 3 No focal sensory or strength deficits. Speech normal. Follows commands. PSYCHIATRIC: Mood normal. SKIN: detail exam as documented in skin assessment - Constitutional Vitals: Temp Pulse Resp BP Pulse Ox 98.2 F 93 H 17 122/64 99 01/13/21 03:49 01/13/21 12:06 01/13/21 07:39 01/13/21 03:49 01/13/21 03:49 Plan Activity: advance as tolerated, fall precautions Diet: low fat Special Instructions: record daily weights, record daily BP diary Follow up with: PRIMARY CARE, [Primary Care Provider] - 7 Days DOC HORAN MD [Staff Physician] - 7 Days Prescriptions: Sennosides Tab [Senokot] 8.6 mg PO Q12HR PRN #60 tablet PRN Reason: Constipation
--- NOTE | 2021-01-16 12:56 | Electrocardiograph Report ---
[facility] Test Date: 2021-01-12 Test Time: 02:12:06 Pat Name: ROJELIO GARCÍA Department: Room: A471 1 Gender: F Revenue Accountant: CRISTINA : 1935 Requested By: THIAGO GUSTAFSON III Order Number: [id number] Reading MD: Ashley Lara Measurements Intervals [place] Rate: 92 P: 6 VT: 128 QRS: 0 QRSD: 85 T: 187 QT: 340 QTc: 421 Interpretive Statements Sinus rhythm Probable left atrial enlargement Nonspecific repol abnormality, diffuse leads No previous ECG available for comparison Electronically Signed On 01-16-2021 12:56:04 EDT by Ashley Lara
== END 2021-01-13 18:43 | disposition home health service (06) ==
LOC: ED 00:50 → 4A 05:36
PROVIDERS: ADMIT Internal Medicine Geriatric Medicine; ATTEND Internal Medicine
DX: G93.40 Encephalopathy, unspecified (principal); R41.82 Altered mental status, unspecified; E86.0 Dehydration; E87.1 Hypo-osmolality and hyponatremia; K21.9 Gastro-esophageal reflux disease without esophagitis; I10 Essential (primary) hypertension; E11.9 Type 2 diabetes mellitus without complications; D72.829 Elevated white blood cell count, unspecified; I95.9 Hypotension, unspecified; R29.701 NIHSS score 1; M25.50 Pain in unspecified joint; E78.5 Hyperlipidemia, unspecified; J45.909 Unspecified asthma, uncomplicated; M19.90 Unspecified osteoarthritis, unspecified site; Z90.49 Acquired absence of other specified parts of digestive tract; Z79.899 Other long term (current) drug therapy; Z98.890 Other specified postprocedural states; Z79.82 Long term (current) use of aspirin
CPT/HCPCS: 36415; 70450; 71045; 74177; 80053; 80061; 81001; 82140; 82550; 82962; 83036; 84132; 84484; 85025; 85610; 85730; 87040; 93005; 96361; 96365; 96366; 96367; 96372; 97116; 97161; 97165; 99291; A9270; G0378; J0692; J1644; J3480; J7030; Q9967; J1815